=== PATIENT | female | born 1960 | race Caucasian/White ===

== ENCOUNTER 2018-03-05 11:08 | Observation (INO) | END 2018-03-06 13:55 | disposition home or self-care (01) ==

== ENCOUNTER 2018-04-14 10:10 | Emergency (ER) | payer OTHER ==
[~2018-04-14] VITALS: Ht 167.6 cm; Wt 88.4 kg
[~2018-04-14 10:10] MED LIST: VENL150C PO
[2018-04-14 10:13] VITALS: RESP 20; Ht 167.6 cm; Wt 88.4 kg
[2018-04-14] MEDS ORDERED: HYDROmorphONE 0.5 MG/0.5 ML SYG IM STA (10:55)
[2018-04-14] MEDS ORDERED: KETOROLAC 30 MG INJ IM STA (10:55)
[2018-04-14] MEDS ORDERED: MED4DP PO (16:42)
--- NOTE | 2018-04-14 16:47 | ERD ---
ER Documentation Chief Complaint Chief Complaint Complains of severe back pain x 1 week HPI 57-year-old female presents with low back pain radiating to the left leg for the last week. She has a history of discectomy 1 month ago approximately with Dr. CISNEROS. She was fine for approximately 3 weeks until the pain started. Denies any history of trauma, lifting or inciting events. She denies any fevers. She may have had a superficial spitting sutures but no history of significant infection. ROS All systems reviewed and are negative except as per history of present illness. Medications Home Meds Active Scripts Methylprednisolone* (Medrol* DOSE PACK) 4 Mg/Dose-Pack Tab.ds.pk, 4 MG PO . DIRECTED for 7 Days, PACKET Prov:MERCEDES HUI MD 04/14/18 Reported Medications Venlafaxine Hcl* (Effexor XR*) 150 Mg Cap.sr.24h, 150 MG PO DAILY, CAP 03/05/18 Allergies Allergies: Coded Allergies: codeine (Verified Allergy, Intermediate, HIVES, 03/05/18) PMhx/Soc History of Surgery: Yes (HYSTERECTOMY, LUMPECTOMY X3,BACK ) Anesthesia Reaction: No Hx Neurological Disorder: No Hx Respiratory Disorders: Yes (SEASONAL ALLERGIES) Hx Cardiac Disorders: No Hx Psychiatric Problems: No Hx Miscellaneous Medical Probl: Yes (LBP, LUMBAR SPINAL STENOSIS .) Hx Alcohol Use: Yes (RARE) Hx Substance Use: No Hx Tobacco Use: No (4 YEARS AGO, CURRENTLY VAPING 03/04) FmHx Family History: No diabetes, No coronary disease, No other Physical Exam Vitals Vital Signs Date Temp Pulse Resp B/P (MAP) Pulse Ox O2 O2 Flow FiO2 Time Delivery Rate 04/14/18 98.9 82 20 151/84 96 10:13 (106) Physical Exam Const: No acute distress Head: Atraumatic Eyes: Normal Conjunctiva ENT: Normal External Ears, Nose and Mouth. Neck: Full range of motion. No meningismus. Resp: Clear to auscultation bilaterally Cardio: Regular rate and rhythm, no murmurs Abd: Soft, non tender, non distended. Normal bowel sounds Skin: No petechiae or rashes Back: No midline or flank tenderness. Tenderness left L4-5 area. No erythema, warmth. Wound healing with very scant staining of serosanguineous drainage on dressing. Ext: No cyanosis, or edema Neur: Awake and alert Psych: Normal Mood and Affect Result Diagram: 04/14/18 1128 04/14/18 1128 Results 24 hrs Laboratory Tests Test 04/14/18 11:28 White Blood Count 7.0 10^3/ul Red Blood Count 4.18 10^6/ul Hemoglobin 12.3 g/dl Hematocrit 36.8 % Mean Corpuscular Volume 88.0 fl Mean Corpuscular Hemoglobin 29.4 pg Mean Corpuscular Hemoglobin Concent 33.4 g/dl Red Cell Distribution Width 12.9 % Platelet Count 348 10^3/UL Mean Platelet Volume 9.4 fl Immature Granulocytes % 0.400 % Neutrophils % 60.4 % Lymphocytes % 30.2 % Monocytes % 6.7 % Eosinophils % 1.9 % Basophils % 0.4 % Nucleated Red Blood Cells % 0.0 /100WBC Immature Granulocytes # 0.030 10^3/ul Neutrophils # 4.2 10^3/ul Lymphocytes # 2.1 10^3/ul Monocytes # 0.5 10^3/ul Eosinophils # 0.1 10^3/ul Basophils # 0.0 10^3/ul Nucleated Red Blood Cells # 0.0 10^3/ul Erythrocyte Sedimentation Rate 9 mm/Hr Urine Color STRAW Urine Clarity CLEAR Urine pH 6.0 Urine Specific [place] 1.005 Urine Ketones NEGATIVE mg/dL Urine Nitrite NEGATIVE mg/dL Urine Bilirubin NEGATIVE mg/dL Urine Urobilinogen NEGATIVE mg/dL Urine Leukocyte Esterase TRACE Brianda/ul Urine Microscopic RBC 1 /HPF Urine Microscopic WBC 1 /HPF Urine Hemoglobin 1+ mg/dL Urine Glucose NEGATIVE mg/dL Urine Total Protein NEGATIVE mg/dl Sodium Level 136 mmol/L Potassium Level 4.5 mmol/L Chloride Level 99 mmol/L Carbon Dioxide Level 30 mmol/L Anion Gap 7 Blood Urea Nitrogen 5 mg/dl Creatinine 0.56 mg/dl Est Glomerular Filtrat Rate mL/min > 60 mL/min Glucose Level 94 mg/dl Calcium Level 9.3 mg/dl C-Reactive Protein 0.5 mg/dl Current Medications Medications Dose Sig/Toyn Start Time Status Last (Trade) Ordered Route PRN Stop Time Admin Dose Reason Admin 1 mg ONCE STAT 04/14/18 DC 04/14/18 Hydromorphone IM 10:55 11:12 HCl 04/14/18 10:56 (Dilaudid) Ketorolac 30 mg ONCE STAT 04/14/18 DC 04/14/18 Tromethamine IM 10:55 11:11 (Toradol) 04/14/18 10:56 10 mg ONCE ONCE 04/14/18 Dexamethasone IV 17:00 (Decadron) 04/14/18 17:01 Procedures/MDM Patient was given Dilaudid 1 mg IM and Toradol 30 mg IM. presentED to see patient. He recommended CBC, CRP and ESR which are all normal. MRI with and without contrast shows some recurrent disc disease without evidence of abscess, additional complications. He requested Decadron 10 mg IV discharged home with Medrol Dosepak and outpatient follow-up. Patient presents with a recurrent sciatica after discectomy approximate 1 month ago. She has no signs of abscess, discitis, epidural abscess, cauda equina syndrome. She will be discharged home with recommendations for rest, stretching, pain medicine as prescribed and primary care follow-up as well as follow-up with her surgeon as directed. The patient was stable with no new complaints during the ER course. Clinically, there is no current evidence to suggest meningitis, sepsis, acute abdomen, pneumonia, stroke, acute coronary syndrome, pulmonary embolism, aortic dissection or any other emergent condition appearing to require further evaluation or hospitalization. Patient counseled regarding my diagnostic impression and care plan. Prior to discharge all questions answered. Pt agrees with treatment plan and understands strict return precautions. Pt is instructed to follow up with primary care provider within 24-48 hours. Precautionary instructions provided including instructions to return to the ER if not improving or for any worsening or changing symptoms or concerns. Departure Diagnosis: Primary Impression: Back pain Back pain location: low back pain Chronicity: acute Back pain laterality: left Sciatica presence: with sciatica Sciatica laterality: sciatica of left side Qualified Codes: M54.42 - Lumbago with sciatica, left side Condition: Stable Patient Instructions: Back Pain W/ Sciatica Referrals: LAURA CISNEROS MD Additional Instructions: See surgeon for further evaluation this week. Recommend stretching exercises at home. Recheck for fevers, new or worsening symptoms. MERCEDES HUI MD Apr 14, 2018 16:47
[2018-04-14 16:54] VITALS: BP 119/68; PULSE 64
[2018-04-14] MEDS ORDERED: DEXAMETHASONE 10 MG/ML 1 ML INJ IV ONE (17:00)
[2018-04-25] MEDS ORDERED: HYDR-4011 PO (16:21)
[2018-04-25] MEDS ORDERED: GABA300C PO (16:21)
== END 2018-04-14 16:54 | disposition home or self-care (01) ==
LOC: FTE 10:10
DX: M54.42 Lumbago with sciatica, left side (principal); Z87.891 Personal history of nicotine dependence
CPT/HCPCS: 72158; 80048; 81001; 85025; 85651; 86140; 96372; 96374; 99285; J1100; J1170; J1885